=== PATIENT | male | born 1990 | race African-American/Black ===

== ENCOUNTER 2016-12-01 00:20 | Emergency (ER) | payer SELFPAY ==
[~2016-12-01] VITALS: Ht 188 cm; Wt 72.7 kg
[2016-12-01] MEDS ORDERED: IPRATROPIUM BROMIDE 0.5 MG/2.5 ML NEB SOLUTION NEB ONE ×2 (00:45→01:15)
[2016-12-01] MEDS ORDERED: ALBUTEROL SULFATE 2.5 MG/0.5 ML NEB SOLUTION NEB ONE (00:45)
[2016-12-01] MEDS ORDERED: ALBUTEROL SULFATE HFA 90 MCG/PUFF 8 GM INHALER IH ONE (00:45)
[2016-12-01] MEDS ORDERED: MethylPREDNISolone SOD SUCC 125 MG/2 ML VIAL IM ONE (00:45)
[2016-12-01] MEDS ORDERED: ALBUTEROL SULFATE 5 MG/ML 20 ML NEB SOLN [BULK] NEB ONE (01:15)
[2016-12-01 02:33] VITALS: BP 138/74
== END 2016-12-01 03:01 | disposition home or self-care (01) ==
LOC: EMS 00:22
DX: J45.901 Unspecified asthma with (acute) exacerbation (principal); F17.210 Nicotine dependence, cigarettes, uncomplicated
CPT/HCPCS: 71010; 94060; 94640; 96372; 99285; J2930; J7613; J3535

== ENCOUNTER 2017-02-10 19:55 | Emergency (ER) | payer SELFPAY ==
[~2017-02-10] VITALS: Ht 190.5 cm; Wt 68.2 kg
[2017-02-10] MEDS ORDERED: ALBU8HFA IH (20:08)
[2017-02-10] MEDS ORDERED: ALBUTEROL SULFATE 5 MG/ML 20 ML NEB SOLN [BULK] NEB ONE ×2 (20:15→21:00)
[2017-02-10] MEDS ORDERED: IPRATROPIUM BROMIDE 0.5 MG/2.5 ML NEB SOLUTION NEB ONE ×2 (20:15→21:00)
[2017-02-10] MEDS ORDERED: PredniSONE 20 MG TABLET PO ONE (20:45)
[2017-02-10 22:12] VITALS: BP 134/66
== END 2017-02-10 22:36 | disposition home or self-care (01) ==
LOC: EMS 19:56
DX: J45.909 Unspecified asthma, uncomplicated (principal); F17.210 Nicotine dependence, cigarettes, uncomplicated
CPT/HCPCS: 94060; 94644; 99285; J7512; J7611; 94640

== ENCOUNTER 2018-07-04 20:29 | Emergency (ER) | payer SELFPAY ==
[~2018-07-04] VITALS: Ht 188 cm; Wt 72.7 kg
[~2018-07-04 20:29] MED LIST: ALBU8HFA IH
[2018-07-04] MEDS ORDERED: ALBUTEROL SULFATE 5 MG/ML 20 ML NEB SOLN [BULK] NEB ONE ×2 (20:45→22:00)
[2018-07-04] MEDS ORDERED: IPRATROPIUM BROMIDE 0.5 MG/2.5 ML NEB SOLUTION NEB ONE ×2 (20:45→22:00)
[2018-07-04] MEDS ORDERED: 0.9% SODIUM CHLORIDE 5 ML NEB SOLUTION NEB ONE ×2 (20:45→21:54)
[2018-07-04] MEDS ORDERED: PredniSONE 20 MG TABLET PO ONE (21:45)
[2018-07-04] MEDS ORDERED: ALBUTEROL SULFATE HFA 90 MCG/PUFF 8 GM INHALER IH ONE (23:15)
[2018-07-04 23:22] VITALS: BP 132/71
== END 2018-07-04 23:38 | disposition home or self-care (01) ==
LOC: EMS 20:30
DX: J45.901 Unspecified asthma with (acute) exacerbation (principal)
CPT/HCPCS: 94644; 94645; 99285; J7512; J3535

== ENCOUNTER 2019-01-15 18:54 | Emergency (ER) | payer SELFPAY ==
[~2019-01-15] VITALS: Ht 188 cm; Wt 72.7 kg
[2019-01-15] MEDS: ALBUTEROL SULFATE 2.5 MG/0.5 ML NEB SOLUTION NEB ONE (19:43)
[2019-01-15] MEDS: IPRATROPIUM BROMIDE 0.5 MG/2.5 ML NEB SOLUTION NEB ONE ×2 (19:43→21:06)
[2019-01-15] MEDS: PredniSONE 20 MG TABLET PO ONE (20:57)
[2019-01-15] MEDS: ALBUTEROL SULFATE HFA 90 MCG/PUFF 8 GM INHALER IH ONE (21:06)
[2019-01-15] MEDS: ALBUTEROL SULFATE 5 MG/ML 20 ML NEB SOLN [BULK] NEB ONE (21:06)
[2019-01-15 22:28] VITALS: BP 133/95
== END 2019-01-15 22:40 | disposition home or self-care (01) ==
LOC: EMS 18:58
DX: J45.901 Unspecified asthma with (acute) exacerbation (principal)
CPT/HCPCS: 71045; 94640; 94644; 99285; J7512; J3535